=== PATIENT | female | born 1975 | race Caucasian/White ===

== ENCOUNTER 2019-09-23 08:03 | Day surgery (SDC) | payer OTHER, SELFPAY ==
[2019-09-23] VITALS (10 sets, daily range): BP systolic 107–144; BP diastolic 69–93; PULSE 78–109; RESP 11–20; TEMP 35.5–36.6; O2SAT 88–99; BMI 36.4
--- NOTE | 2019-09-23 | PATH_ITS ---
[facility] Accession Number: [id number] . 01 Material submitted: . colon - RANDOM COLON BIOPSIES . 02 Diagnosis: Random Colon, Biopsies: Colonic mucosa with no diagnostic abnormality. Negative for active, chronic, and microscopic colitis. Negative for dysplasia and malignancy. . MRV 09/24/2019 1311 Local . 02 Electronically signed: . Dominique Ibarra MD, Pathologist NPI- [id number] . 01 Gross description: . RANDOM COLON BIOPSIES: Received in formalin are multiple fragment(s) of reed, soft tissue measuring 0.1 x 0.1 x 0.1 cm to 0.2 x 0.2 x 0.2 cm submitted entirely in 1 cassette(s) /[facility] 09/23/20192141 Local . 02 Pathologist provided ICD-10: R19.7 . 02 CPT . 164142 Performed at: 01 [facility] [address] [facility], [place], [place] [id number] MD Shun Rey MD Phone: [phone] Performed at: [address] [facility] [address] [place], [place] [id number] MD Dominique Ibarra MD Phone: [phone]
[2019-09-23] MEDS: SODIUM CHLORIDE 0.9% 1,000 ML 42 ML IV (08:59)
--- NOTE | 2019-09-23 09:10 | PM.HP.1 ---
History of Present Illness History of Present Illness Date Patient Seen: 09/23/19 Chief complaint: 13704 Narrative: Chronic diarrhea Patient History Medical History (Updated 09/23/19 @ 09:10 by Brandon Disla MD) Fibromyalgia (Acute) Lupus (Acute) Sjogren's disease (Acute) Meds Home Medications and Allergies Home Medications Medication Instructions Recorded Confirmed Type amitriptyline 25 mg PO DAILY 09/23/19 09/23/19 History duloxetine [Cymbalta] 60 mg PO DAILY 09/23/19 09/23/19 History hydroxychloroquine [Plaquenil] 200 mg PO DAILY 09/23/19 09/23/19 History leflunomide 10 mg PO DAILY 09/23/19 09/23/19 History Allergies Allergy/AdvReac Type Severity Reaction Status Date / Time No Known Drug Allergies Allergy Verified 09/23/19 09:00 Exam Narrative Exam Narrative: Oropharynx free of lesions Chest clear to auscultation percussion Cardiac exam reveals no S3 or murmur Assessment & Plan Assessment & Plan narrative: Loose stools need for colonoscopy in biopsy to rule out an underlying colitis. Mother has history of Crohn's disease. Father has history of ulcerative colitis Risks benefits alternatives been explained.
[2019-09-23] MEDS: fentaNYL 250 MCG/5 ML INJ IV (09:45)
[2019-09-23] MEDS: MIDAZOLAM 5 MG/5 ML VIAL IV (09:46)
--- NOTE | 2019-09-23 10:06 | PM.OP.ENDO ---
Operative Date/Time/Diagnoses Date of procedure: 09/23/19 Pre-op diagnosis: See indication and findings Procedure & Clinicians Study performed: Colonoscopy with biopsy Same procedure as scheduled: Yes Indications: Diarrhea Surgeon: Brandon Disla Procedure Notes Procedure in detail: After informed consent was obtained the patient was placed in left lateral decubitus position. The video colonoscope was introduced the rectum slowly advanced. Passage to the splenic flexure was difficult. Eventually the cecum was reached in the IC valve intubated. On slow withdrawal mucosa was carefully examined. The scope was removed patient tolerated procedure well. Blood loss none Complications none Sedation Total sedation time 30 minutes Versed 8 mg fentanyl 200 micro g IV titration Findings 1. Normal terminal ileum Two. Normal colonoscopy to cecum. Random biopsies taken to rule out microscopic colitis. Patient will be scheduled for CT enteroclysis and then return visit with me. Next time colonoscopy needs to be performed at age 51 she should have this done with anesthesia assistance.
--- NOTE | 2019-09-23 10:55 | SUR.PHASEI ---
Addendum entered by Alyce Flores R.N. 09/23/19 11:28: 1120 Patient states she feels much better. States headache and nausea are both gone. Remains on some O2 via nasal canula. Oxygen drops to upper 80's at times. Dr. Disla aware. Moved patient to phase 2 and placed her on an O2 monitor. Receiving RN aware. Original Note: Patient suddenly became nauseated and had emesis of 100cc. Also states she has a headache. Dr. Disla notified and gave orders for zofran and tylenol.
[2019-09-23] MEDS: ONDANSETRON 4 MG/2 ML INJ IV (11:01)
[2019-09-23] MEDS: ACETAMINOPHEN 325 MG TABLET 650 MG PO (11:03)
--- NOTE | 2019-09-23 13:54 | SUR.PHASEII ---
Assumed care from Alyce Pt on pulse ox on room air. Sats 93% then up to 98% by discharge.
== END 2019-09-23 12:00 | disposition home or self-care (01) ==
LOC: ENDO 08:04
PROVIDERS: Family Provider Internal Medicine; PCP Internal Medicine; Referring Provider Internal Medicine Gastroenterology; Visit Provider Internal Medicine Gastroenterology
PROC: 0DJD8ZZ Inspection of Lower Intestinal Tract, Via Natural or Artificial Opening Endoscopic (ICD-10-PCS; CPT 45378; principal; 2019-09-23 09:30)
DX: R19.7 Diarrhea, unspecified (principal)
CPT/HCPCS: 45380; J2250; J2405; J3010